=== PATIENT | female | born 1930 | race Caucasian/White ===

== ENCOUNTER → 2019-07-27 | Outpatient (CLI) | payer MEDICARE | END | disposition home or self-care (01) | LOC: RAD 08:38 | PROVIDERS: ATTEND Family Medicine | DX: I65.23 Occlusion and stenosis of bilateral carotid arteries (principal); I67.82 Cerebral ischemia; G31.9 Degenerative disease of nervous system, unspecified; R41.81 Age-related cognitive decline | CPT/HCPCS: 70551; 93880 ==

== ENCOUNTER 2020-06-05 15:52 | Emergency (ER) | payer MEDICARE ==
[~2020-06-05] VITALS: Ht 167.6 cm; Wt 61.5 kg
--- NOTE | 2020-06-05 16:37 | NUR ---
collar separator note: Pt to room from [facility] at this time.
[2020-06-05] MEDS ORDERED: HYDR25TA6 PO (17:11)
[2020-06-05] MEDS ORDERED: LOSARTAN (17:11)
[2020-06-05] MEDS ORDERED: ATORVASTATIN (17:11)
--- NOTE | 2020-06-05 17:12 | NUR ---
PER EMS: PT'S FAMILY UNSURE OF PT'S ALLERGY STATUS. PT UNSURE.
[2020-06-05 17:30] VITALS: BP 125/52
[2020-06-05] MEDS ORDERED: ACETAMINOPHEN 325 MG TABLET PO ONE (17:30)
[2020-06-05] MEDS ORDERED: SODIUM CHLORIDE 0.9% 1,000ML IVBOLUS ONE (17:30)
[2020-06-05] MEDS ORDERED: SODIUM CHLORIDE FLUSH 10ML SYR IVF ONE (17:30)
[2020-06-05] MEDS ORDERED: PLEASE ENTER ALLERGIES MC SCH (17:30)
--- NOTE | 2020-06-05 17:33 | NUR ---
CALLED PT'S SPOUSE FOR PT'S ALLERGY & RX INFORMATION.
[2020-06-05 17:47] LABS: ALBUMIN 3.4 g/dL (3.4-5.0); ANION GAP 7 mmol/L (5-15); CALCIUM 9.4 mg/dL (8.5-10.1); CHLORIDE 102 mmol/L (98-107)
[2020-06-05 17:51] LABS: ALANINE AMINOTRANSFERASE 27 U/L (12-78); ALKALINE PHOSPHATASE 75 U/L (45-117); BILIRUBIN,TOTAL 1.1 mg/dL (0.2-1.0); CREATININE 1.43 mg/dL (0.55-1.02); TOTAL PROTEIN 6.8 g/dL (6.4-8.2)
--- NOTE | 2020-06-05 17:52 | NUR ---
INFORMED PROVIDERS OF PT'S DESIRE TO LEAVE.
--- NOTE | 2020-06-05 17:53 | NUR ---
PT CONSISTENTLY REQUESTING RN; STATING SHE WANTS TO LEAVE. INFORMED PT THAT HER WILL BE CALLED.
[2020-06-05 17:56] LABS: BASOPHILS % (AUTO) 1 % (0-1); EOSINOPHILS % (AUTO) 0 % (1-7); LYMPHOCYTES % (AUTO) 10 % (22-44); MEAN CORPUSCULAR HEMOGLOBIN 31.3 pg (27.0-34.8); MEAN CORPUSCULAR HGB CONC 33.9 g/dL (32.4-35.8); MEAN PLATELET VOLUME 9.5 fL (7.4-10.4); MONOCYTES % (AUTO) 6 % (2-9); NEUTROPHILS % (AUTO) 83 % (42-75); PLATELET COUNT 218 x10^3/uL (130-400); RED BLOOD COUNT 4.07 x10^6/uL (3.82-5.3); RED CELL DISTRIBUTION WIDTH 12.4 % (9.6-15.2)
--- NOTE | 2020-06-05 17:58 | NUR ---
CALLED PT'S SPOUSE; AFTER DISCUSSION OF PT'S REQUEST TO GO HOME AND PENDING TESTS, SPOUSE AGREED TO COME FOR PT, ETA: 30 MINS.
[2020-06-05 18:03] LABS: MD NO
--- NOTE | 2020-06-05 18:23 | NUR ---
PT STANDING AT END OF BED GETTING DRESSED. PT PULLED IV OUT; NO ACTIVE BLEEDING. URGED PT TO STAY IN ROOM UNTIL SPOUSE ARRIVES. PT REFUSING ADDITIONAL TREATMENT.
--- NOTE | 2020-06-05 18:29 | NUR ---
PT FULLY DRESSED. ASKED PT TO WAIT IN ROOM FOR SPOUSE'S ARRIVAL. PT AGREED TO REQUEST.
--- NOTE | 2020-06-05 18:40 | NUR ---
SPOUSE HERE. INFORMED HIM PT NEEDS TO WAIT IN ED ROOM FOR DC INSTRUCTIONS; UNDERSTANDING VERBALIZED.
--- NOTE | 2020-06-05 18:44 | NUR ---
PT & SPOUSE STANDING AT BACK RN DESK. INFORMED PT THAT SHE'S WAITING FOR DISCHARGE DOCUMENTS. AGAIN ASKED PT TO WAIT IN ROOM. PT AGAIN VERBALIZED UNDERSTANDING; SPOUSE APPEARS UNWILLING TO ENFORCE REQUEST.
== END 2020-06-05 19:05 | disposition home or self-care (01) ==
LOC: ED 16:57
DX: R19.7 Diarrhea, unspecified (principal); R53.1 Weakness; Z20.828 Contact with and (suspected) exposure to other viral communicable diseases; N28.9 Disorder of kidney and ureter, unspecified; R07.9 Chest pain, unspecified; R50.9 Fever, unspecified; I10 Essential (primary) hypertension
CPT/HCPCS: 71045; 80053; 85025; 87635; 99284